=== PATIENT | female | born 1980 | race Caucasian/White ===

== ENCOUNTER 2017-12-10 18:08 | Emergency (ER) | payer MEDICAID ==
[2017-12-10] MEDS: ACETAMINOPHEN 325 MG TAB PO (20:46)
== END 2017-12-10 21:12 | disposition home or self-care (01) ==
LOC: FTE 18:08
DX: J02.0 Streptococcal pharyngitis (principal); Z79.82 Long term (current) use of aspirin
CPT/HCPCS: 99283; Z7502